=== PATIENT | female | born 1950 | race Caucasian/White ===

== ENCOUNTER 2021-09-16 13:01 | Emergency (ER) | payer MEDICARE, OTHER, SELFPAY ==
[2021-09-16 13:12] VITALS: BP 132/67; PULSE 60; RESP 16; TEMP 36.6; O2SAT 98
--- NOTE | 2021-09-16 13:23 | ED.URI ---
HPI - URI/Sore Throat General Chief Complaint: Upper Respiratory Infection Stated Complaint: earache,sorethroat Time Seen by Provider: 09/16/21 13:23 Source: patient Mode of arrival: ambulatory Limitations: no limitations History of Present Illness HPI Narrative: Kayla Campbell is a 71 yo female w PMH of afib, chronic anticoagulation, GERD, HTN, hypothyroid, high cholesterol, who [facility] with upper respiratory symptoms of L ear ache and sore throat x 2 days. she has remained afebrile, no nausea vomiting diarrhea, has completed the Covid vaccine series plus booster Related Data Home Medications Medication Instructions Recorded Confirmed apixaban [Eliquis] mg 09/16/21 diltiazem HCl 09/16/21 dronedarone [Multaq] mg 09/16/21 levothyroxine 09/16/21 losartan 09/16/21 omeprazole 09/16/21 rosuvastatin mg 09/16/21 Allergies Allergy/AdvReac Type Severity Reaction Status Date / Time No Known Allergies Allergy Verified 09/16/21 13:36 Review of Systems Review of Systems: CONSTITUTIONAL: Denies fever, chills, sweats. EYES: Denies visual changes, redness, discharge. ENT: Denies rhinorrhea, no congestion, has sore throat, otalgia. CARDIOVASCULAR: Denies chest pain, palpitations, edema. RESPIRATORY: Denies dyspnea, wheezing, cough GASTROINTESTINAL: Denies abdominal pain, nausea, vomiting, diarrhea. GENITOURINARY: Denies dysuria, hematuria, abnormal discharge SKIN: Denies rash or itching. NEUROLOGIC: Denies numbness, or focal weakness. PSYCHIATRIC: Denies anxiety or depression. PMFSH Past Medical History Medical History A-fib Chronic anticoagulation HTN (hypertension) HTN (hypertension) Hypothyroid Social History Social History (Updated 09/16/21 @ 13:38 by Kamille Allison CNP) Smoking status: Never smoker Alcohol intake: current Comments At time of signature, I agree with nursing past medical, surgical, social and family history. There is no relevant family history pertinent to the presenting complaint. Exam Narrative: GENERAL: This is a well-nourished, well-developed patient, in mild distress. HEAD: normocephalic, atraumatic. EYES: PERRL. Sclera clear/white. Vision is grossly intact. EARS: External ears normal, auditory canals right erythema left less so and without drainage, fluid behind both TMs ( however pain greater in L). Hearing grossly intact. NOSE: External nose normal without nasal discharge, nares without redness, has rhinorrhea. THROAT: Mucous membranes moist, posterior pharynx erythema NECK: Neck supple, left more tender with swallowing CARDIOVASCULAR: Regular rate and rhythm without murmurs, gallops, or rubs. RESPIRATORY: Clear to auscultation. Breath sounds equal bilaterally. No wheezes, rales, or rhonchi. GASTROINTESTINAL: Abdomen soft, SKIN: warm, intact with no suspicious lesions or rash, good texture and turgor. NEURO: awake, alert, and oriented to person, place and time. There were no obvious focal neurologic abnormalities. Steady gait EXTREMITIES: Normal range of motion. BACK: Nontender without deformity Course Course Emergency Course: Patient comes 2 days of sore throat and sinus drainage particularly ear pain on the left. Had Covid vaccine plus booster. Daughter is having ultrasound for early tomorrow and wants to make sure that she does not have strep or some other obvious infection Strep test-negative Covid test-negative Started on polymyxin eardrops, patient will start taking Flonase from home recommended that she take Zyrtec [id number] every morning for postnasal drip Vital Signs Vital signs: Vital Signs Temperature 98 F 09/16/21 13:12 Pulse Rate 60 09/16/21 13:12 Respiratory Rate 16 09/16/21 13:12 Blood Pressure 132/67 09/16/21 13:12 Pulse Oximetry 98 09/16/21 13:12 Temperature 98 F 09/16/21 13:12 Pulse Rate 60 09/16/21 13:12 Respiratory Rate 16
== END 2021-09-16 14:01 | disposition home or self-care (01) ==
PROVIDERS: Emergency Provider Nurse Practitioner
DX: H92.02 Otalgia, left ear (principal); R09.82 Postnasal drip; Z20.822 Contact with and (suspected) exposure to COVID-19; I48.91 Unspecified atrial fibrillation; Z79.01 Long term (current) use of anticoagulants; I10 Essential (primary) hypertension; E03.9 Hypothyroidism, unspecified; K21.9 Gastro-esophageal reflux disease without esophagitis; E78.00 Pure hypercholesterolemia, unspecified
CPT/HCPCS: 87081; 87426; 87880; 99213; C9803; G0463

== ENCOUNTER 2023-09-24 13:01 | Emergency (ER) | payer MEDICARE, SELFPAY ==
[2023-09-24 13:24] VITALS: BP 133/82; PULSE 50; RESP 18; TEMP 36.8; O2SAT 98
--- NOTE | 2023-09-24 14:02 | ED.SKABFB ---
HPI - Skin/Abscess/Foreign Bdy General Chief complaint: Skin/Abscess/Foreign Body Stated complaint: rash Time Seen by Provider: 09/24/23 14:03 Source: patient Mode of arrival: ambulatory Limitations: no limitations History of Present Illness HPI narrative: 73-year-old female presented for complaint of red rash to the right forehead, onset 3 days. Started with small area to the right cheek yesterday. Endorses burning and tenderness to the site; reports headache yesterday. She has applied hydrocortisone. She also states she was possibly exposed to poison reza the day before she saw the rash. States she has had allergic reactions to poison reza in the past but this feels different. Denies lip, tongue, or throat swelling, shortness of breath or wheezing. Denies changes to soap, detergent, lotion, or any other exposures. No one else in the house or any contacts with similar symptoms. Related Data Home Medications Medication Instructions Recorded Confirmed apixaban 5 mg tablet (Eliquis) 5 mg PO BID 09/16/21 09/24/23 dronedarone 400 mg tablet (Multaq) 400 mg PO BID 09/16/21 09/24/23 losartan 50 mg tablet 50 mg PO DAILY 09/16/21 09/24/23 omeprazole 20 mg capsule,delayed 20 mg PO DAILY 09/16/21 09/24/23 release rosuvastatin 10 mg tablet 10 mg PO DAILY 09/16/21 09/24/23 amlodipine 2.5 mg tablet 2.5 mg DIRECTED 09/24/23 09/24/23 hydrochlorothiazide 12.5 mg tablet 12.5 mg DIRECTED 09/24/23 09/24/23 levothyroxine 88 mcg tablet 88 mcg DIRECTED 09/24/23 09/24/23 Allergies Allergy/AdvReac Type Severity Reaction Status Date / Time No Known Allergies Allergy Verified 09/16/21 13:36 Review of Systems Review of Systems: CONSTITUTIONAL: Denies body aches, fever, chills, or sweats. EYES: Denies visual changes, redness, or discharge. ENT: Denies rhinorrhea, congestion CARDIOVASCULAR: Denies chest pain, palpitations, or edema. RESPIRATORY: Denies cough or dyspnea. GASTROINTESTINAL: Denies abdominal pain, nausea, vomiting, or diarrhea. SKIN: Reports red rash to forehead and right cheek MUSCULOSKELETAL: Denies back pain, joint pain, or myalgia. NEUROLOGIC: Denies headache, numbness, tingling, or weakness. FOR[facility]LY [facility] Past Medical History Medical History A-fib Chronic anticoagulation HTN (hypertension) HTN (hypertension) Hypothyroid Social History Social History Smoking status: Never smoker Alcohol intake: current Comments At time of signature, I have reviewed and agree with nursing past medical, surgical, social and family history unless otherwise noted. Please see nursing chart for further information. There is no relevant family history pertinent to the presenting complaint Exam Narrative: GENERAL: Well-appearing HEAD: Normocephalic, atraumatic. EYES: conjunctivae clear, and EOMI. ENT: Mucous membranes moist. Oropharynx without edema, erythema or lesions. NECK: Supple. No lymphadenopathy CHEST: Clear to auscultation. HEART: Regular rate and rhythm. SKIN: Warm, dry. Cluster of vesicular lesions on an erythematous base noted to the right forehead approximately 3 cm in diameter; right anterior cheek with similar lesions approx 1cm diameter. Tender to palpation. No active drainage. No fluctuance. NEURO: Alert and oriented x3. Course Course Emergency Course: Patient is aware of diagnosis, understands and agrees to treatment plan. Anticipatory guidance given. Patient agrees to follow-up as directed and is aware of reasons to seek care at the emergency department. Portions of this record may have been created with voice recognition software Level of Care: Express Care Visit Vital Signs Vital signs: Vital Signs Temperature 98.2 F 09/24/23 13:24 Pulse Rate 50 L 09/24/23 13:24 Respiratory Rate 18 09/24/23 13:24 Blood Pressure 133/82 09/24/23 13:24 Pulse Oximetry 98 11
== END 2023-09-24 14:23 | disposition home or self-care (01) ==
PROVIDERS: Emergency Provider Nurse Practitioner Family
DX: L30.9 Dermatitis, unspecified (principal); I48.91 Unspecified atrial fibrillation; E03.9 Hypothyroidism, unspecified; I10 Essential (primary) hypertension; Z79.899 Other long term (current) drug therapy; Z79.01 Long term (current) use of anticoagulants
CPT/HCPCS: 99213; G0463